=== PATIENT | female | born 1965 | race Caucasian/White ===

== ENCOUNTER 2017-07-18 12:06 | Outpatient (CLI) | payer OTHER ==
[2015-04-04 04:09] VITALS: BP 140/78
--- NOTE | 2017-07-18 17:43 | Diagnostic Imaging Report ---
OZZY SANDOVAL [facility] [address] [facility] [address] [address] Report Submission Date: Jul 18, 2017 12:45:41 PM [employer] Patient Study Name: BENY DERAS Date: Jul 18, 2017 12:14:43 PM [employer] Modality Type: DX Gender: F Description: PELVIS : 69 Institution: [facility] Physician: OZZY SANDOVAL Examination: Plain film right hip History: RIGHT HIP/GROIN PAIN WITH WEAKNESS AND SHOOTING PAINS FOR SEVERAL MONTHS WITH NO KNOWN INJURY (Hx) Comparison exams: None provided Findings: 2 views of the right hip demonstrates femoral head ossific spurring. No fracture no dislocation. No soft tissue abnormality. Impression: Degenerative spurring. No acute appearing osseous abnormality. Electronically signed on Jul 18, 2017 12:45:41 PM [employer] by: Nhan CRUZ
== END 2017-07-18 12:07 ==
LOC: RAD 12:06
PROVIDERS: ATTEND Family Medicine
DX: R10.30 Lower abdominal pain, unspecified (principal)
CPT/HCPCS: 73502